=== PATIENT | male | born 1995 | race Hispanic/Latino ===

== ENCOUNTER 2016-07-28 08:07 | Emergency (ER) | payer OTHER ==
--- NOTE | 2016-07-28 09:10 | EDDOCDS ---
Nurse's Notes [facility] Name: Rebel Lawton Age: 20 yrs Sex: Male : 1995 Arrival Date: 07/28/2016 Time: 08:07 Bed I2 / M2 Private MD: Diagnosis: Chondrocostal junction syndrome [Tietze];Chest pain, unspecified-reproducible Presentation: 07/28 08:09 Presenting complaint: Patient states: Intermittent left anterior chest pain since mlb1 March, body ache since April. Adult Sepsis Screening: The patient does not have new or worsening altered mentation. Patient's respiratory rate is less than 22. Systolic blood pressure is greater than 100. Patient has a qSOFA score of 0- Negative Sepsis Screen. Suicide/Homicide risk assessment- the patient denies having any suicidal and/or homicidal ideations and does not present with any other emotional, behavioral or mental health complaints. Status: The patient is an active duty customer service analyst. Transition of care: patient was not received from another setting of care. 08:09 Acuity: GUANACO Level 3 mlb1 08:09 Method Of Arrival: Walkin/Carried/Asstd mlb1 Triage Assessment: 08:12 General: Appears distressed, Behavior is cooperative. Pain: Location: anterior aspect mlb1 of left upper chest, body aches Pain currently is 7 out of 10 on a pain scale. Pt Declines HIV testing. GI: Reports nausea, vomiting. Historical: - Allergies: no known allergies; - Home Meds: 1. melatonin 1 mg Oral tab daily 2. unknown for sleep daily - PMHx: none; - PSHx: none; - Social history: Smoking status: Patient states was never smoker of tobacco. No barriers to communication noted, The patient speaks fluent Croatian, Speaks appropriately for age. - Family history: Not pertinent. - : The pt / caregiver states he / she is not on anticoagulants. Home medication list is obtained from the patient. - Exposure Risk Screening:: None identified. Screenin:07 Screening information is obtained from the patient. Fall risk: No risks identified. kc3 Assistance ADL's: requires no assistance with activities of daily living. Abuse/DV Screen: The patient / caregiver reports he/she is: not in a situation that causes fear, pain or injury. Nutritional screening: No deficits noted. Advance Directives: Currently, there is no health care proxy. home support is adequate. Assessment: 09:05 General: Appears in no apparent distress, comfortable, Behavior is appropriate for age, kc3 cooperative. Pain: Location: back and chest. Neurological: Level of Consciousness is awake, alert, obeys commands, Oriented to person, place, time. Cardiovascular: Capillary refill < 3 seconds. Respiratory: Respiratory effort is even, unlabored, Respiratory pattern is regular, symmetrical. Derm: Skin is pink, warm & dry. Musculoskeletal: Circulation, motion, and sensation intact. Vital Signs: 08:13 BP 165 / 82; Pulse 74; Resp 16; Temp 98.9(TE); Pulse Ox 99% on R/A; Weight 83.46 kg mlb1 (R); Height 5 ft. 9 in. (175.26 cm); Pain 7/10; 09:08 BP 155 / 91; Pulse 64; Resp 18; Temp 97.5(O); Pulse Ox 98% on R/A; kc3 08:13 Body Mass Index 27.17 (83.46 kg, 175.26 cm) [facility] Vitals: 08:13 Log In Time: July 28, 2016 at 08:07. [facility] ED Course: 08:08 Patient visited by Tiago López, Reg. pm4 08:08 Patient moved to Waiting pm4 08:09 Patient visited by Karson Kowalski, RN. mlb1 08:11 Triage Initiated mlb1 08:14 Patient visited by Karson oKwalski, RN. mlb1 08:17 [facility]jeda [facility]. btw 08:17 Helena Simpson MD is Attending Physician. btw 08:17 Patient moved to I2 / M2 mlb1 08:24 Patient visited by Javi Tejeda PA. btw 08:27 [facility] btw 09:08 No IV's were initiated during this patient's visit. No procedures done that require kc3 assistance. 09:09 The patient / caregiver is instructed regarding the plan of care and ED course. kc3 Order Results: There are currently no results for this order. Outcome: 08:28 Discharge ordered by Provider. btw 09:08 Discharge Assessment: Patient awake, alert and oriented x 3. No cognitive and/or kc3 functional deficits noted. Patient verbalized understanding of disposition instructions. patient administered narcotics - no. The following High Risk Discharge criteria are identified: None. Condition: stable. Discharge instructions given to patient, Instructed on discharge instructions, follow up and referral plans. medication usage, Demonstrated understanding of instructions, medications, Pt was receptive of discharge instructions/ teaching. Prescriptions given X 1. No special radiology studies were completed. Property :Personal belongings accompany Pt. 09:09 Patient left the ED. kc3 Signatures: Karson Kowalski RN RN mlb1 Javi Tejeda PA PA btw Crane, Kelsi, RN RN kc3 Tiago López, Reg Reg pm4 MTDD
--- NOTE | 2016-07-28 09:10 | EDDOCDS ---
Physician Documentation [facility] Name: Rebel Lawton Age: 20 yrs Sex: Male : 1995 Arrival Date: 07/28/2016 Time: 08:07 Bed I2 / M2 Private MD: Disposition: 07/28/16 08:28 Discharged to Home/Self Care. Impression: Chest pain, unspecified - reproducible, Chondrocostal junction syndrome [Tietze]. - Condition is Stable. - Discharge Instructions: Costochondritis, [id number]. - Prescriptions for Medrol (Kaden) 4 mg Oral Tablets, Dose Pack - take 1 Pack by ORAL route as directed - follow package instructions; 1 packet. - Medication Reconciliation, Local Pharmacy Hours form. - Follow up: To[facility]; When: Today; Reason: Further diagnostic work-up, Recheck today's complaints, Continuance of care. - Problem is an ongoing problem. - Symptoms are unchanged. - Notes: YOUR CHEST PAIN IS REPRODUCIBLE AND HAS BEEN GOING ON FOR MONTHS WHICH INDICATES THAT THEPROBABILITY OF YOUR PAIN BEING RELATED TO YOUR HEART IS VERY LOW. IT IS RECOMMENDED, SINCE WE ARE NOT MEDICAL OFFICERS IN THIS ER, THAT YOU GO ON SICK CALL FOR FOLLOW UP AND FOR ANY PROFILES/QUARTERS REQUESTS. PLEASE BE SURE TO READ AND FOLLOW YOUR DISCHARGE INSTRUCTIONS CAREFULLY. Historical: - Allergies: no known allergies; - Home Meds: 1. melatonin 1 mg Oral tab daily 2. unknown for sleep daily - PMHx: none; - PSHx: none; - Social history: Smoking status: Patient states was never smoker of tobacco. No barriers to communication noted, The patient speaks fluent Turkmen, Speaks appropriately for age. - Family history: Not pertinent. - : The pt / caregiver states he / she is not on anticoagulants. Home medication list is obtained from the patient. - Exposure Risk Screening:: None identified. Vital Signs: 07/28 08:13 BP 165 / 82; Pulse 74; Resp 16; Temp 98.9(TE); Pulse Ox 99% on R/A; Weight 83.46 kg / mlb1 184 lbs (R); Height 5 ft. 9 in. (175.26 cm); Pain 7/10; 09:08 BP 155 / 91; Pulse 64; Resp 18; Temp 97.5(O); Pulse Ox 98% on R/A; kc3 08:13 Body Mass Index 27.17 (83.46 kg, 175.26 cm) mlb1 Signatures: Karson Kowalski RN RN mlb1 Javi Tejeda PA PA btw Crane, Kelsi,RN RN kc3 MTDD
--- NOTE | 2016-07-30 10:09 | EDDOCDS ---
Physician Documentation [facility] Name: Rebel Lawton Age: 20 yrs Sex: Male : 1995 Arrival Date: 07/28/2016 Time: 08:07 Bed I2 / M2 Private MD: Disposition: 07/28/16 08:28 Discharged to Home/Self Care. Impression: Chest pain, unspecified - reproducible, Chondrocostal junction syndrome [Tietze]. - Condition is Stable. - Discharge Instructions: Costochondritis, [id number]. - Prescriptions for Medrol (Kaden) 4 mg Oral Tablets, Dose Pack - take 1 Pack by ORAL route as directed - follow package instructions; 1 packet. - Medication Reconciliation, Local Pharmacy Hours form. - Follow up: To[facility]; When: Today; Reason: Further diagnostic work-up, Recheck today's complaints, Continuance of care. - Problem is an ongoing problem. - Symptoms are unchanged. - Notes: YOUR CHEST PAIN IS REPRODUCIBLE AND HAS BEEN GOING ON FOR MONTHS WHICH INDICATES THAT THEPROBABILITY OF YOUR PAIN BEING RELATED TO YOUR HEART IS VERY LOW. IT IS RECOMMENDED, SINCE WE ARE NOT MEDICAL OFFICERS IN THIS ER, THAT YOU GO ON SICK CALL FOR FOLLOW UP AND FOR ANY PROFILES/QUARTERS REQUESTS. PLEASE BE SURE TO READ AND FOLLOW YOUR DISCHARGE INSTRUCTIONS CAREFULLY. Historical: - Allergies: no known allergies; - Home Meds: 1. melatonin 1 mg Oral tab daily 2. unknown for sleep daily - PMHx: none; - PSHx: none; - Social history: Smoking status: Patient states was never smoker of tobacco. No barriers to communication noted, The patient speaks fluent Sinhala, Speaks appropriately for age. - Family history: Not pertinent. - : The pt / caregiver states he / she is not on anticoagulants. Home medication list is obtained from the patient. - Exposure Risk Screening:: None identified. Vital Signs: 07/28 08:13 BP 165 / 82; Pulse 74; Resp 16; Temp 98.9(TE); Pulse Ox 99% on R/A; Weight 83.46 kg / mlb1 184 lbs (R); Height 5 ft. 9 in. (175.26 cm); Pain 7/10; 09:08 BP 155 / 91; Pulse 64; Resp 18; Temp 97.5(O); Pulse Ox 98% on R/A; kc3 08:13 Body Mass Index 27.17 (83.46 kg, 175.26 cm) mlb1 MDM: :38 Financial registration complete. mm15 :38 [facility] Payment Agreement was scanned into [employer] and attached to record. mm15 14:45 T-Sheet-- Draft Copy was scanned into [employer] and attached to record. gb Signatures: Glory Herrera, Reg Reg gb Karson Kowalski RN RN mlb1 Javi Tejeda PA PA btw McGrath, Marlynn mm15 Gissell Gordon,RN RN kc3 The chart was reviewed and I authenticate all verbal orders and agree with the evaluation and treatment provided.Attachments: :38 [facility] Payment Agreement mm15 14:45 T-Sheet-- Draft Copy gb Chart Complete MTDD
--- NOTE | 2016-07-30 10:09 | EDDOCDS ---
Nurse's Notes [facility] Name: Rebel Lawton Age: 20 yrs Sex: Male : 1995 Arrival Date: 07/28/2016 Time: 08:07 Bed I2 / M2 Private MD: Diagnosis: Chondrocostal junction syndrome [Tietze];Chest pain, unspecified-reproducible Presentation: 07/28 08:09 Presenting complaint: Patient states: Intermittent left anterior chest pain since mlb1 March, body ache since April. Adult Sepsis Screening: The patient does not have new or worsening altered mentation. Patient's respiratory rate is less than 22. Systolic blood pressure is greater than 100. Patient has a qSOFA score of 0- Negative Sepsis Screen. Suicide/Homicide risk assessment- the patient denies having any suicidal and/or homicidal ideations and does not present with any other emotional, behavioral or mental health complaints. Status: The patient is an active duty field service consultant. Transition of care: patient was not received from another setting of care. 08:09 Acuity: GUANACO Level 3 mlb1 08:09 Method Of Arrival: Walkin/Carried/Asstd mlb1 Triage Assessment: 08:12 General: Appears distressed, Behavior is cooperative. Pain: Location: anterior aspect mlb1 of left upper chest, body aches Pain currently is 7 out of 10 on a pain scale. Pt Declines HIV testing. GI: Reports nausea, vomiting. Historical: - Allergies: no known allergies; - Home Meds: 1. melatonin 1 mg Oral tab daily 2. unknown for sleep daily - PMHx: none; - PSHx: none; - Social history: Smoking status: Patient states was never smoker of tobacco. No barriers to communication noted, The patient speaks fluent Persian, Speaks appropriately for age. - Family history: Not pertinent. - : The pt / caregiver states he / she is not on anticoagulants. Home medication list is obtained from the patient. - Exposure Risk Screening:: None identified. Screenin:07 Screening information is obtained from the patient. Fall risk: No risks identified. kc3 Assistance ADL's: requires no assistance with activities of daily living. Abuse/DV Screen: The patient / caregiver reports he/she is: not in a situation that causes fear, pain or injury. Nutritional screening: No deficits noted. Advance Directives: Currently, there is no health care proxy. home support is adequate. Assessment: 09:05 General: Appears in no apparent distress, comfortable, Behavior is appropriate for age, kc3 cooperative. Pain: Location: back and chest. Neurological: Level of Consciousness is awake, alert, obeys commands, Oriented to person, place, time. Cardiovascular: Capillary refill < 3 seconds. Respiratory: Respiratory effort is even, unlabored, Respiratory pattern is regular, symmetrical. Derm: Skin is pink, warm & dry. Musculoskeletal: Circulation, motion, and sensation intact. Vital Signs: 08:13 BP 165 / 82; Pulse 74; Resp 16; Temp 98.9(TE); Pulse Ox 99% on R/A; Weight 83.46 kg mlb1 (R); Height 5 ft. 9 in. (175.26 cm); Pain 7/10; 09:08 BP 155 / 91; Pulse 64; Resp 18; Temp 97.5(O); Pulse Ox 98% on R/A; kc3 08:13 Body Mass Index 27.17 (83.46 kg, 175.26 cm) [facility] Vitals: 08:13 Log In Time: July 28, 2016 at 08:07. [facility] ED Course: 08:08 Patient visited by Tiago López Reg. pm4 08:08 Patient moved to Waiting pm4 08:09 Patient visited by Karson Kowalski, RN. mlb1 08:11 Triage Initiated mlb1 08:14 Patient visited by Karson Kowalski, RN. mlb1 08:17 Javi Tejeda PA is PHCP. btw 08:17 Helena Simpson MD is Attending Physician. btw 08:17 Patient moved to I2 / M2 mlb1 08:24 Patient visited by Javi Tejeda PA. btw 08:27 [facility] is Referral Physician. btw 09:08 No IV's were initiated during this patient's visit. No procedures done that require kc3 assistance. 09:09 The patient / caregiver is instructed regarding the plan of care and ED course. kc3 09:38 [facility] Payment Agreement was scanned into [employer] and attached to record. mm15 10:22 Patient name changed from Rebel\S\\S\Jered\S\ to Rebel\S\ \S\Jered. EDMS 14:45 T-Sheet-- Draft Copy was scanned into [employer] and attached to record. gb Order Results: There are currently no results for this order. Outcome: 08:28 Discharge ordered by Provider. btw 09:08 Discharge Assessment: Patient awake, alert and oriented x 3. No cognitive and/or kc3 functional deficits noted. Patient verbalized understanding of disposition instructions. patient administered narcotics - no. The following High Risk Discharge criteria are identified: None. Condition: stable. Discharge instructions given to patient, Instructed on discharge instructions, follow up and referral plans. medication usage, Demonstrated understanding of instructions, medications, Pt was receptive of discharge instructions/ teaching. Prescriptions given X 1. No special radiology studies were completed. Property :Personal belongings accompany Pt. 09:09 Patient left the ED. kc3 Signatures: Dispatcher [employer] [facility] Glory Herrera, Reg Reg gb Karson Kowalski RN RN mlb1 Javi Tejeda PA PA btw Fely Hancock mm15 Gissell Gordon RN RN kc3 Tiago López, Reg Reg pm4 Chart Complete BRADEN
--- NOTE | 2016-07-30 10:09 | EDDOCDS ---
Physician Documentation [facility] Name: Rebel Lawton Age: 20 yrs Sex: Male : 1995 Arrival Date: 07/28/2016 Time: 08:07 Bed I2 / M2 Private MD: Disposition: 07/28/16 08:28 Discharged to Home/Self Care. Impression: Chest pain, unspecified - reproducible, Chondrocostal junction syndrome [Tietze]. - Condition is Stable. - Discharge Instructions: Costochondritis, [id number]. - Prescriptions for Medrol (Kaden) 4 mg Oral Tablets, Dose Pack - take 1 Pack by ORAL route as directed - follow package instructions; 1 packet. - Medication Reconciliation, Local Pharmacy Hours form. - Follow up: Toña [facility]; When: Today; Reason: Further diagnostic work-up, Recheck today's complaints, Continuance of care. - Problem is an ongoing problem. - Symptoms are unchanged. - Notes: YOUR CHEST PAIN IS REPRODUCIBLE AND HAS BEEN GOING ON FOR MONTHS WHICH INDICATES THAT THEPROBABILITY OF YOUR PAIN BEING RELATED TO YOUR HEART IS VERY LOW. IT IS RECOMMENDED, SINCE WE ARE NOT MEDICAL OFFICERS IN THIS ER, THAT YOU GO ON SICK CALL FOR FOLLOW UP AND FOR ANY PROFILES/QUARTERS REQUESTS. PLEASE BE SURE TO READ AND FOLLOW YOUR DISCHARGE INSTRUCTIONS CAREFULLY. Historical: - Allergies: no known allergies; - Home Meds: 1. melatonin 1 mg Oral tab daily 2. unknown for sleep daily - PMHx: none; - PSHx: none; - Social history: Smoking status: Patient states was never smoker of tobacco. No barriers to communication noted, The patient speaks fluent Syriac, Speaks appropriately for age. - Family history: Not pertinent. - : The pt / caregiver states he / she is not on anticoagulants. Home medication list is obtained from the patient. - Exposure Risk Screening:: None identified. Vital Signs: 07/28 08:13 BP 165 / 82; Pulse 74; Resp 16; Temp 98.9(TE); Pulse Ox 99% on R/A; Weight 83.46 kg / mlb1 184 lbs (R); Height 5 ft. 9 in. (175.26 cm); Pain 7/10; 09:08 BP 155 / 91; Pulse 64; Resp 18; Temp 97.5(O); Pulse Ox 98% on R/A; kc3 08:13 Body Mass Index 27.17 (83.46 kg, 175.26 cm) mlb1 MDM: :38 Financial registration complete. mm15 :38 [facility] Payment Agreement was scanned into [employer] and attached to record. mm15 14:45 T-Sheet-- Draft Copy was scanned into [employer] and attached to record. gb Signatures: Glory Herrera, Reg Reg gb Karson Kowalski RN RN mlb1 Javi Tejeda PA PA btw McGrath, Marlynn mm15 Gissell Gordon,RN RN kc3 The chart was reviewed and I authenticate all verbal orders and agree with the evaluation and treatment provided.Attachments: :38 [facility] Payment Agreement mm15 14:45 T-Sheet-- Draft Copy gb Chart Complete MTDD
== END 2016-07-28 09:09 | disposition home or self-care (01) ==
LOC: M ED 08:07
DX: M94.0 Chondrocostal junction syndrome [Tietze] (principal)

== ENCOUNTER 2017-12-29 22:08 | Inpatient (IN) | payer OTHER ==
[2017-12-29 22:48] LABS: HEMATOCRIT 42.4 % (42.0-52.0); HEMOGLOBIN 14.6 g/dl (13.5-17.5); MEAN CORPUSCULAR HEMOGLOBIN 29.7 pg (27.0-33.0); MEAN CORPUSCULAR HGB CONC 34.4 g/dl (32.0-36.5); MEAN CORPUSCULAR VOLUME 86.2 fl (80.0-96.0); PLATELET COUNT, AUTOMATED 258 10^3/uL (150-450); RED BLOOD COUNT 4.92 10^6/uL (4.30-6.10); RED CELL DISTRIBUTION WIDTH 12.5 % (11.5-14.5); WHITE BLOOD COUNT 6.6 10^3/uL (4.0-10.0)
[2017-12-29 23:07] LABS: AMPHETAMINES LEVEL URINE NEGATIVE (NEGATIVE); BARBITURATES URINE NEGATIVE (NEGATIVE); BENZODIAZEPINES URINE NEGATIVE (NEGATIVE); CANNABINOIDS URINE NEGATIVE (NEGATIVE); COCAINE METABOLITE URINE NEGATIVE (NEGATIVE); METHADONE URINE NEGATIVE (NEGATIVE); OPIATES URINE NEGATIVE (NEGATIVE); PHENCYCLIDINE URINE NEGATIVE (NEGATIVE)
[2017-12-29 23:18] LABS: ALBUMIN 3.9 GM/DL (3.2-5.2); ALBUMIN/GLOBULIN RATIO 1.34 (1.00-1.93); ALKALINE PHOSPHATASE 82 U/L (45-117); ALT/SGPT 18 U/L (12-78); ANION GAP 4 MEQ/L (8-16); AST/SGOT 12 U/L (7-37); BILIRUBIN,DIRECT < 0.1 MG/DL (0.0-0.2); BILIRUBIN,TOTAL 0.3 MG/DL (0.2-1.0); BLOOD UREA NITROGEN 14 MG/DL (7-18); CALCIUM LEVEL 8.6 MG/DL (8.5-10.1); CARBON DIOXIDE LEVEL 30 MEQ/L (21-32); CHLORIDE LEVEL 110 MEQ/L (98-107); CREATININE FOR GFR 1.06 MG/DL (0.70-1.30); GLOMERULAR FILTRATION RATE > 60.0 (>60); GLUCOSE, FASTING 91 MG/DL (70-100); POTASSIUM SERUM 4.2 MEQ/L (3.5-5.1); SALICYLATE LEVEL < 1.7 MG/DL (5.0-30.0); SODIUM LEVEL 144 MEQ/L (136-145); TOTAL PROTEIN 6.8 GM/DL (6.4-8.2)
[2017-12-29 23:22] LABS: ACETAMINOPHEN LEVEL < 2.0 UG/ML (10.0-30.0); ETHYL ALCOHOL (ETHANOL) < 0.003 % (0.000-0.010)
[2017-12-30] MEDS ORDERED: ACETAMINOPHEN TAB 650MG DOSE (2X325MG) PO
[2017-12-30] MEDS ORDERED: MAALOX 30 ML SUSP *UDC PO
[2017-12-30] MEDS ORDERED: traZODone 50 MG TAB PO
[2017-12-30] MEDS ORDERED: MOM 30ML SUSPENSION UDC PO
== END 2018-01-02 13:00 | disposition home or self-care (01) | DRG 881 ==
LOC: M ED 22:08 → M ED INP 23:48 → M PSY 12-30 01:48
DX: F43.21 Adjustment disorder with depressed mood (principal); F32.9 Major depressive disorder, single episode, unspecified; F17.210 Nicotine dependence, cigarettes, uncomplicated; Z62.810 Personal history of physical and sexual abuse in childhood; Z62.811 Personal history of psychological abuse in childhood